=== PATIENT | female | born 1955 | race Caucasian/White ===

== ENCOUNTER 2017-09-10 17:00 | Emergency (ER) | payer OTHER ==
[2017-09-10] MEDS: CYCLOBENZAPRINE 10 MG TAB PO (19:40)
[2017-09-10] MEDS: HYDROCODONE/APAP (10/325) TAB PO (19:40)
== END 2017-09-10 22:14 | disposition home or self-care (01) ==
LOC: FTE 17:00
DX: M54.5 Low back pain (principal)
CPT/HCPCS: 72131; 99284-25

== ENCOUNTER 2019-05-20 03:59 | Emergency (ER) | payer OTHER ==
[2019-05-20 05:25] LABS: ADD MAN DIFF? NO
[2019-05-20 05:27] LABS: WHITE BLOOD COUNT 11.8 10^3/ul (4.8-10.8)
[2019-05-20 05:27] LABS: BASOPHILS % 0.3 % (0.0-2.0); EOSINOPHILS # 0.1 10^3/ul (0.0-0.5); HEMATOCRIT 35.7 % (37.0-47.0); HEMOGLOBIN 11.5 g/dl (12.0-16.0); LYMPHOCYTES # 1.7 10^3/ul (0.8-2.9); LYMPHOCYTES % 14.4 % (15.0-51.0); MEAN CORPUSCULAR HEMOGLOBIN 29.6 pg (29.0-33.0); MEAN CORPUSCULAR HGB CONC 32.2 g/dl (32.0-37.0); MEAN CORPUSCULAR VOLUME 91.8 fl (82.0-101.0); MEAN PLATELET VOLUME 11.5 fl (7.4-10.4); MONOCYTE # 0.7 10^3/ul (0.3-0.9); MONOCYTES % 6.1 % (0.0-11.0); NEUTROPHIL # 9.2 10^3/ul (1.6-7.5); NEUTROPHILS % 77.8 % (39.0-77.0); PLATELET COUNT 206 10^3/UL (140-415); RED BLOOD COUNT 3.89 10^6/ul (4.20-5.40); RED CELL DISTRIBUTION WIDTH 12.2 % (11.5-14.5)
[2019-05-20 05:52] LABS: ALANINE AMINOTRANSFERASE 16 IU/L (13-69); ALBUMIN 3.9 g/dl (3.3-4.9); ALBUMIN/GLOBULIN RATIO 1.18; ALKALINE PHOSPHATASE 67 IU/L (42-121); ANION GAP 9 (5-13); ASPARTATE AMINO TRANSFERASE 36 IU/L (15-46); BILIRUBIN,INDIRECT 0.4 mg/dl (0-1.1); BILIRUBIN,TOTAL 0.4 mg/dl (0.2-1.3); BLOOD UREA NITROGEN 32 mg/dl (7-20); CALCIUM 7.2 mg/dl (8.4-10.2); CARBON DIOXIDE 26 mmol/L (21-31); CHLORIDE 106 mmol/L (97-110); CREATININE 2.41 mg/dl (0.44-1.00); Estimated GFR 20 mL/min (>60); GLUCOSE 246 mg/dl (70-220); LIPASE 65 U/L (23-300); POTASSIUM 5.3 mmol/L (3.5-5.1); SODIUM 141 mmol/L (135-144); TOTAL PROTEIN 7.2 g/dl (6.1-8.1)
[2019-05-20 06:03] LABS: TROPONIN-I < 0.012 ng/ml (0.000-0.120)
[2019-05-20 07:30] LABS: URINE PH (Dip) POC 5.5 (5.0-8.5)
[2019-05-20 07:30] LABS: URINE BLOOD (Dip) POC 3+ (NEGATIVE); URINE GLUCOSE (Dip) POC Negative (NEGATIVE); URINE KETONES (Dip) POC Trace (NEGATIVE); URINE LEUKOCYTE EST (Dip) POC 1+ (NEGATIVE); URINE NITRITE (Dip) POC Negative (NEGATIVE); URINE TOTAL PROTEIN POC 3+ (NEGATIVE)
[2019-05-20] MEDS: ACETAMINOPHEN 500 MG TAB PO (07:42)
[2019-05-20] MEDS: CEFTRIAXONE 1 GM/50 ML (PMX) 50 ML IVPB (09:06)
== END 2019-05-20 09:49 | disposition home or self-care (01) ==
LOC: E/R 03:59
DX: M54.9 Dorsalgia, unspecified (principal)
CPT/HCPCS: 36415; 74176; 80053; 81003; 83690; 84443; 84484; 85025; 87086; 93005; 96374; 99285-25

== ENCOUNTER 2019-05-25 13:11 | Observation (INO) | payer OTHER ==
[2019-05-25] MEDS: SOD CHLORIDE 0.9% 500 ML IV (16:13)
[2019-05-25 16:16] LABS: ADD MAN DIFF? NO
[2019-05-25 16:19] LABS: BASOPHIL # 0.1 10^3/ul (0.0-0.1); BASOPHILS % 0.6 % (0.0-2.0); EOSINOPHILS # 0.2 10^3/ul (0.0-0.5); EOSINOPHILS % 2.3 % (0.0-7.0); HEMATOCRIT 36.6 % (37.0-47.0); HEMOGLOBIN 11.8 g/dl (12.0-16.0); LYMPHOCYTES # 2.1 10^3/ul (0.8-2.9); LYMPHOCYTES % 20.2 % (15.0-51.0); MEAN CORPUSCULAR HEMOGLOBIN 29.5 pg (29.0-33.0); MEAN CORPUSCULAR HGB CONC 32.2 g/dl (32.0-37.0); MEAN CORPUSCULAR VOLUME 91.5 fl (82.0-101.0); MEAN PLATELET VOLUME 11.1 fl (7.4-10.4); MONOCYTE # 0.7 10^3/ul (0.3-0.9); NEUTROPHILS % 69.3 % (39.0-77.0); PLATELET COUNT 225 10^3/UL (140-415); RED CELL DISTRIBUTION WIDTH 12.4 % (11.5-14.5)
[2019-05-25 16:19] LABS: WHITE BLOOD COUNT 10.2 10^3/ul (4.8-10.8)
[2019-05-25 16:50] LABS: ALANINE AMINOTRANSFERASE 18 IU/L (13-69); ALBUMIN 3.6 g/dl (3.3-4.9); ALBUMIN/GLOBULIN RATIO 1.05; ALKALINE PHOSPHATASE 69 IU/L (42-121); ANION GAP 9 (5-13); ASPARTATE AMINO TRANSFERASE 28 IU/L (15-46); BILIRUBIN,INDIRECT 0.3 mg/dl (0-1.1); BILIRUBIN,TOTAL 0.3 mg/dl (0.2-1.3); BLOOD UREA NITROGEN 35 mg/dl (7-20); CALCIUM 6.7 mg/dl (8.4-10.2); CARBON DIOXIDE 24 mmol/L (21-31); CHLORIDE 106 mmol/L (97-110); CREATININE 2.33 mg/dl (0.44-1.00); Estimated GFR 21 mL/min (>60); GLUCOSE 203 mg/dl (70-220); POTASSIUM 4.5 mmol/L (3.5-5.1); SODIUM 139 mmol/L (135-144)
[2019-05-25 17:02] LABS: TROPONIN-I < 0.012 ng/ml (0.000-0.120)
[2019-05-25 17:06] LABS: FREE T3 2.45 pg/ml (2.77-5.27)
[2019-05-25 17:07] LABS: FREE T4 (FREE THYROXINE) 0.96 ng/dl (0.78-2.44)
[2019-05-25] MEDS ORDERED: SOD CHLORIDE 0.9% 1,000 ML IV (18:55)
[2019-05-25] MEDS ORDERED: ONDANSETRON 4 MG INJ IV ×2 (19:00→20:30)
[2019-05-25] MEDS ORDERED: ACETAMINOPHEN 325 MG TAB PO ×2 (19:00→20:30)
[2019-05-25 19:05] LABS: ADD UMIC YES; UR ASCORBIC ACID NEGATIVE (NEGATIVE); UR BILIRUBIN (Dip) NEGATIVE (NEGATIVE); UR BLOOD (Dip) 1+ mg/dL (NEGATIVE); UR CLARITY CLOUDY (CLEAR); UR COLOR YELLOW (YELLOW); UR GLUCOSE (Dip) NEGATIVE (NEGATIVE); UR KETONES (Dip) NEGATIVE (NEGATIVE); UR LEUKOCYTE ESTERASE (Dip) TRACE Leu/ul (NEGATIVE); UR MUCUS FEW /HPF (NONE SEEN); UR NITRITE (Dip) NEGATIVE (NEGATIVE); UR RBC 4 /HPF (0-5); UR SPECIFIC GRAVITY (Dip) 1.019 (1.003-1.030); UR SQUAMOUS EPITHELIAL CELL FEW /HPF (FEW); UR TOTAL PROTEIN (Dip) 3+ mg/dl (NEGATIVE); UR UROBILINOGEN (Dip) NEGATIVE (NEGATIVE); UR WBC 31 /HPF (0-5)
[2019-05-25] MEDS: SOD CHLORIDE 0.9% 1,000 ML IV ×2 (20:08→22:55)
[2019-05-25] MEDS ORDERED: NACL 0.9% 3 ML SYG IV (20:30)
[2019-05-25] MEDS ORDERED: MAGNESIUM HYDROXIDE 30ML CUP PO (20:30)
[2019-05-25] MEDS ORDERED: BISACODYL 10 MG SUPP PR (20:30)
[2019-05-25] MEDS: HEPARIN 5,000 UNIT/1 ML VIAL SC ×2 (21:00→23:05)
[2019-05-25] MEDS: INSULIN ASPART [NOVOLOG] 3 ML PEN SC (21:00)
[2019-05-25] MEDS: NICARDipine HCL 30 MG CAPSULE PO (21:03)
[2019-05-25] MEDS: LORAZEPAM 2 MG INJ IV (22:00)
[2019-05-25] MEDS: FAMOTIDINE 20 MG TAB PO (23:24)
[2019-05-26] MEDS: ACCU-CHEK XX (02:00)
[2019-05-26 07:20] LABS: ADD MAN DIFF? NO
[2019-05-26 07:26] LABS: BASOPHILS % 0.2 % (0.0-2.0); EOSINOPHILS # 0.2 10^3/ul (0.0-0.5); EOSINOPHILS % 2.7 % (0.0-7.0); HEMOGLOBIN 10.6 g/dl (12.0-16.0); LYMPHOCYTES # 2.5 10^3/ul (0.8-2.9); LYMPHOCYTES % 28.4 % (15.0-51.0); MEAN CORPUSCULAR HEMOGLOBIN 29.4 pg (29.0-33.0); MEAN CORPUSCULAR HGB CONC 32.1 g/dl (32.0-37.0); MEAN CORPUSCULAR VOLUME 91.4 fl (82.0-101.0); MEAN PLATELET VOLUME 10.9 fl (7.4-10.4); MONOCYTE # 0.6 10^3/ul (0.3-0.9); MONOCYTES % 7.1 % (0.0-11.0); NEUTROPHIL # 5.3 10^3/ul (1.6-7.5); NEUTROPHILS % 61.1 % (39.0-77.0); PLATELET COUNT 192 10^3/UL (140-415); RED BLOOD COUNT 3.61 10^6/ul (4.20-5.40); RED CELL DISTRIBUTION WIDTH 12.6 % (11.5-14.5)
[2019-05-26 07:26] LABS: WHITE BLOOD COUNT 8.6 10^3/ul (4.8-10.8)
[2019-05-26 08:00] LABS: ALANINE AMINOTRANSFERASE 18 IU/L (13-69); ALBUMIN 3.4 g/dl (3.3-4.9); ALBUMIN/GLOBULIN RATIO 1.09; ALKALINE PHOSPHATASE 63 IU/L (42-121); ANION GAP 7 (5-13); ASPARTATE AMINO TRANSFERASE 21 IU/L (15-46); BILIRUBIN,INDIRECT 0.3 mg/dl (0-1.1); BILIRUBIN,TOTAL 0.3 mg/dl (0.2-1.3); BLOOD UREA NITROGEN 37 mg/dl (7-20); CALCIUM 6.4 mg/dl (8.4-10.2); CARBON DIOXIDE 26 mmol/L (21-31); CHLORIDE 109 mmol/L (97-110); CHOL/HDL RATIO 6.3 RATIO; CHOLESTEROL 177 mg/dl (100-200); CREATININE 2.34 mg/dl (0.44-1.00); Estimated GFR 21 mL/min (>60); GLUCOSE 120 mg/dl (70-220); HDL CHOLESTEROL 28 mg/dl (35-98); LDL CHOLESTEROL,CALCULATED 107 mg/dl; MAGNESIUM 1.7 mg/dl (1.7-2.5); PHOSPHORUS 5.9 mg/dl (2.5-4.9); SODIUM 142 mmol/L (135-144); TOTAL PROTEIN 6.5 g/dl (6.1-8.1); TRIGLYCERIDES 212 mg/dl (0-149)
[2019-05-26] MEDS: INSULIN ASPART [NOVOLOG] 3 ML PEN SC ×7 (08:00→21:00)
[2019-05-26 08:34] LABS: HEMOGLOBIN A1C 7.8 % (0-5.9)
[2019-05-26] MEDS: FAMOTIDINE 20 MG TAB PO ×3 (08:50→21:00)
[2019-05-26] MEDS: LEVOTHYROXINE 100 MCG TAB PO (08:54)
[2019-05-26] MEDS: HEPARIN 5,000 UNIT/1 ML VIAL SC ×2 (09:02→21:20)
[2019-05-26] MEDS: ATENOLOL 100 MG TAB PO (09:07)
[2019-05-26] MEDS ORDERED: GLUCOSE GEL 15 GRAM TUBE BUCCAL (09:30)
[2019-05-26] MEDS ORDERED: DEXTROSE 50% 50 ML SYRINGE IV ×2 (09:30)
[2019-05-26] MEDS ORDERED: GLUCAGON 1 MG INJ IM (09:30)
[2019-05-26] MEDS ORDERED: GLUCOSE GEL 15 GRAM TUBE PO ×2 (09:30)
[2019-05-26 11:39] LABS: SODIUM,URINE RANDOM 61 mmol/L (30-90)
[2019-05-26 11:39] LABS: CREATININE,URINE RANDOM 164.37 mg/dl (20-320)
[2019-05-26] MEDS: SOD CHLORIDE 0.9% 1,000 ML IV ×2 (12:10→22:48)
[2019-05-26] MEDS: hydrALAzine 20 MG INJ IV (15:14)
[2019-05-26] MEDS: NIFEdipine (XL) 30 MG TAB PO (21:17)
[2019-05-26] MEDS: INSULIN GLARGINE [LANTus] (100 UNITS/ML) SYG SC (21:19)
[2019-05-27] MEDS: ACCU-CHEK XX (02:00)
[2019-05-27] MEDS: SOD CHLORIDE 0.9% 1,000 ML IV (05:19)
[2019-05-27] MEDS: INSULIN ASPART [NOVOLOG] 3 ML PEN SC ×6 (08:00→17:40)
[2019-05-27] MEDS: ATENOLOL 100 MG TAB PO (08:10)
[2019-05-27] MEDS: FAMOTIDINE 20 MG TAB PO (08:10)
[2019-05-27] MEDS: LEVOTHYROXINE 100 MCG TAB PO (08:11)
[2019-05-27] MEDS: HEPARIN 5,000 UNIT/1 ML VIAL SC (08:19)
[2019-05-27 11:12] LABS: ANION GAP 9 (5-13); BLOOD UREA NITROGEN 36 mg/dl (7-20); CALCIUM 6.3 mg/dl (8.4-10.2); CARBON DIOXIDE 23 mmol/L (21-31); CHLORIDE 109 mmol/L (97-110); CREATININE 2.14 mg/dl (0.44-1.00); Estimated GFR 23 mL/min (>60); GLUCOSE 152 mg/dl (70-220); MAGNESIUM 1.6 mg/dl (1.7-2.5); POTASSIUM 4.1 mmol/L (3.5-5.1); SODIUM 141 mmol/L (135-144)
[2019-05-27] MEDS: MAGNESIUM SULFATE 2 GM/50 ML 50 ML IVPB (13:54)
[2019-05-27] MEDS: PROPRANOLOL 20 MG TAB PO (14:49)
[2019-05-27] MEDS: DOCUSATE SODIUM 100 MG CAP PO (16:31)
[2019-05-27] MEDS ORDERED: NIFEdipine (XL) 30 MG TAB PO (21:00)
[2019-05-28] MEDS ORDERED: LEVOTHYROXINE 100 MCG TAB PO (06:00)
== END 2019-05-27 19:45 ==
LOC: E/R 13:11 → 2NE 19:01
DX: R53.1 Weakness (principal); R25.1 Tremor, unspecified; I12.9 Hypertensive chronic kidney disease with stage 1 through stage 4 chronic kidney disease, or unspecified chronic kidney disease; E11.22 Type 2 diabetes mellitus with diabetic chronic kidney disease; N18.3 Chronic kidney disease, stage 3 (moderate); E03.9 Hypothyroidism, unspecified; E66.01 Morbid (severe) obesity due to excess calories; Z91.19 Patient's noncompliance with other medical treatment and regimen
CPT/HCPCS: 36415; 70450; 70551; 71045; 76775; 80048; 80053; 80061; 81001; 81003; 82962; 83036; 83735; 84100; 84155; 84300; 84439; 84443; 84481; 84484; 85025; 87086; 89190; 97162; 97530; 99285-25